=== PATIENT | female | born 1995 ===

== ENCOUNTER 2023-01-02 12:44 | Outpatient (CLI) | payer OTHER | END 2023-01-02 14:55 | disposition home or self-care (01) | LOC: PRENATAL 12:44 | PROVIDERS: ATTEND Obstetrics & Gynecology Maternal & Fetal Medicine | DX: O36.80X0 Pregnancy with inconclusive fetal viability, not applicable or unspecified (principal); O09.219 Supervision of pregnancy with history of pre-term labor, unspecified trimester; Z3A.12 12 weeks gestation of pregnancy ==

== ENCOUNTER 2023-02-28 12:12 | Outpatient (CLI) | payer OTHER ==
[2023-02-28] MEDS ORDERED: PRENATAL CAPLE1 EAC1 PO (13:47)
== END 2023-03-01 05:36 | disposition home or self-care (01) ==
LOC: OBS/DEL 12:12
PROVIDERS: ATTEND Obstetrics & Gynecology
DX: O46.8X2 Other antepartum hemorrhage, second trimester (principal); Z3A.20 20 weeks gestation of pregnancy

== ENCOUNTER 2023-03-10 14:49 | Outpatient (CLI) | payer OTHER ==
[~2023-03-10 14:49] MED LIST: PRENATAL CAPLE1 EAC1 PO
== END 2023-03-10 15:49 | disposition home or self-care (01) ==
LOC: PRENATAL 14:49
PROVIDERS: ATTEND Obstetrics & Gynecology Maternal & Fetal Medicine
DX: O35.9XX0 Maternal care for (suspected) fetal abnormality and damage, unspecified, not applicable or unspecified (principal); O35.3XX0 Maternal care for (suspected) damage to fetus from viral disease in mother, not applicable or unspecified; O09.219 Supervision of pregnancy with history of pre-term labor, unspecified trimester; Z3A.22 22 weeks gestation of pregnancy

== ENCOUNTER 2023-04-29 17:53 | Outpatient (CLI) | payer OTHER | END 2023-04-30 13:46 | disposition home or self-care (01) | LOC: OBS/DEL 17:53 | PROVIDERS: ATTEND Obstetrics & Gynecology | DX: O23.33 Infections of other parts of urinary tract in pregnancy, third trimester (principal); N39.0 Urinary tract infection, site not specified; O99.013 Anemia complicating pregnancy, third trimester; Z3A.29 29 weeks gestation of pregnancy; Z20.822 Contact with and (suspected) exposure to COVID-19 ==

== ENCOUNTER 2023-05-19 16:02 | Outpatient (CLI) | payer OTHER | END 2023-05-19 17:05 | disposition home or self-care (01) | LOC: PRENATAL 16:02 | PROVIDERS: ATTEND Obstetrics & Gynecology Maternal & Fetal Medicine | DX: O26.849 Uterine size-date discrepancy, unspecified trimester (principal); O09.219 Supervision of pregnancy with history of pre-term labor, unspecified trimester; Z3A.32 32 weeks gestation of pregnancy ==